=== PATIENT | female | born 1955 | race Caucasian/White ===

== ENCOUNTER 2016-12-08 10:02 | Inpatient (IN) | payer OTHER ==
[~2016-12-08] VITALS: Ht 165.1 cm; Wt 98.3 kg
[2016-12-08] MEDS ORDERED: SODIUM CHLORIDE 0.9% 1,000 ML IV ONE (11:00)
[2016-12-08] MEDS ORDERED: HYDROmorphone HCL 2 MG/ML VL IV ONE (11:00)
[2016-12-08] MEDS ORDERED: ONDANSETRON HCL 4 MG/2 ML VIAL IV ONE ×2 (11:00→12:45)
[2016-12-08] MEDS ORDERED: POTA10SO11 GT (11:15)
[2016-12-08] MEDS ORDERED: PANT40TA2 PO (11:15)
[2016-12-08] MEDS ORDERED: SIMV-13 PO (11:15)
[2016-12-08] MEDS ORDERED: LISI10TA6 PO (11:25)
[2016-12-08] MEDS ORDERED: ATEN-60 PO (11:25)
[2016-12-08 11:35] LABS: Basophils # (auto) 0.1 uL; Basophils % (auto) 0.6 % (0.0-2.0); CONDITION Y; Eosinophils # (auto) 0.1 uL; Eosinophils % (auto) 1.1 % (0.0-7.0); Lymphocytes # (auto) 1.3 uL; Lymphocytes % (auto) 14.2 % (10.0-50.0); Mean Corpuscular Hemoglobin 32.7 pg (28.0-32.0); Mean Corpuscular Hgb Conc. 34.2 g/dL (32.0-36.0); Mean Corpuscular Volume 95.8 fL (80.0-100.0); Mean Platelet Volume 8.4 fL (7.4-10.4); Monocytes # (auto) 0.6 uL; Monocytes % (auto) 6.4 % (0.0-12.0); Neutrophils % (auto) 77.7 % (37.0-80.0); Platelet Count (auto) 297 10^3/uL (140-450); Red Cell Distribution Width 12.9 % (11.6-16.0); White Blood Cell 9.1 10^3/uL (4.4-10.8)
[2016-12-08 11:51] LABS: INR 0.99 (0.9-1.15); Partial Thromboplastin Time 24.3 sec (22.64-33.71); Prothrombin Time 10.8 sec (9.37-12.3)
[2016-12-08 11:58] LABS: Albumin 3.7 g/dL (3.4-5.0); BUN/Creatinine Ratio 18.4; Calcium 8.4 mg/dL (8.5-10.1)
[2016-12-08 12:01] LABS: Bilirubin, Total 0.5 mg/dL (0.2-1.0); Total Protein 7.4 g/dL (6.4-8.2)
[2016-12-08] MEDS: SODIUM CHLORIDE 0.9% 1,000 ML IV SCH ×2 (12:11→22:02)
[2016-12-08] MEDS ORDERED: LORazepam 0.5 MG TAB PO PRN (12:15)
[2016-12-08] MEDS ORDERED: TEMAZEPAM 15 MG CAP PO PRN (12:15)
[2016-12-08] MEDS ORDERED: MORPHINE SULF INJ 2 MG/ML SYRINGE 1ML IV PRN ×2 (12:15→12:45)
[2016-12-08] MEDS ORDERED: BUPIVACAINE 0.25% INJ 50ML VIAL ONE (12:39)
[2016-12-08] MEDS ORDERED: KETOROLAC TROMETH 30 MG/ML 1ML VIAL IV ONE (12:45)
[2016-12-08] MEDS ORDERED: MIDAZOLAM HCL 1MG/1ML-2 ML VIAL IV PRN (12:45)
[2016-12-08] MEDS ORDERED: LABETALOL HCL 5 MG/ML 4ML SYRINGE IV PRN (12:45)
[2016-12-08] MEDS ORDERED: HYDROmorphone HCL 2 MG/ML VL IV PRN ×2 (12:45→15:15)
[2016-12-08] MEDS ORDERED: ePHEDrine SULFATE 50 MG/ML AMP IV PRN (12:45)
[2016-12-08] MEDS ORDERED: ceFAZolin 1GM/50ML D5W 100 ML IV ONE (12:46)
[2016-12-08] MEDS ORDERED: POTASSIUM CHL 20MEQ/100ML 100 ML IV ONE (12:52)
[2016-12-08] MEDS ORDERED: MORPHINE SULF(PF) 0.5MG/ML 10ML VIAL ONE (12:55)
[2016-12-08] MEDS ORDERED: fentaNYL CITRATE 100 MCG/2 ML VL ONE (12:55)
[2016-12-08] MEDS ORDERED: MIDAZOLAM HCL 1MG/1ML-2 ML VIAL ONE (12:55)
[2016-12-08] MEDS ORDERED: TETRACAINE 1% INJ 2 ML VIAL IJ ONE (12:57)
[2016-12-08] MEDS: PANTOPRAZOLE 40 MG TAB PO SCH (13:00)
[2016-12-08] MEDS ORDERED: DEXAMETHASONE SOD PHOS 10MG/1ML VIAL INJ IV PRN (15:15)
[2016-12-08] MEDS ORDERED: KETOROLAC TROMETH 30 MG/ML 1ML VIAL IV PRN (15:15)
[2016-12-08] MEDS ORDERED: diphenhdrAMINE HCL 50 MG/1 ML VL IV PRN (15:15)
[2016-12-08] MEDS ORDERED: NALBUPHINE HCL 10 MG/1ml INJECTION SUBCUT ONE (15:15)
[2016-12-08] MEDS ORDERED: NALOXONE HCL 0.4 MG/ML VIAL IV PRN (15:15)
[2016-12-08] MEDS ORDERED: ONDANSETRON HCL 4 MG/2 ML VIAL IV PRN (15:15)
[2016-12-08 17:01] VITALS: BP 128/67
[2016-12-08 22:00] VITALS: BP 121/71
[2016-12-08] MEDS: ceFAZolin 1GM/50ML D5W 50 ML IV SCH (23:25)
[2016-12-08] MEDS: HYDROmorphone HCL 2 MG/ML VL IV PRN (23:43)
[2016-12-09 05:00] VITALS: BP 115/47
[2016-12-09] MEDS: ceFAZolin 1GM/50ML D5W 50 ML IV SCH ×3 (05:37→22:00)
[2016-12-09] MEDS: HYDROmorphone HCL 2 MG/ML VL IV PRN ×3 (05:45→13:20)
[2016-12-09] MEDS: SODIUM CHLORIDE 0.9% 1,000 ML IV SCH ×3 (05:45→22:00)
[2016-12-09] MEDS: PANTOPRAZOLE 40 MG TAB PO SCH (08:56)
[2016-12-09 09:00] VITALS: BP 111/47
[2016-12-09] MEDS: PROMETHAZINE HCL 25 MG/ML 1ML IV PRN (12:36)
[2016-12-09 13:00] VITALS: BP 110/43
[2016-12-09] MEDS ORDERED: POTASSIUM CHL 20 Meq TABLET PO ONE (15:00)
[2016-12-09] MEDS ORDERED: cefTRIAXone 1GM/50ML D5W 50 ML IV ONE (16:45)
[2016-12-09] MEDS: ACETAMINOPHEN 500 MG TAB PO PRN (16:50)
[2016-12-09 17:00] VITALS: BP 130/50
[2016-12-09 18:29] LABS: Urine Bilirubin Negative (Negative); Urine Blood Negative /uL (Negative); Urine Color Yellow (Yellow); Urine Glucose Normal (Normal); Urine Ketone Negative (Negative); Urine Nitrite Negative (Negative); Urine RBC 1 /hpf (0 - 4); Urine Squamous Epithelial Cell FEW /hpf (<5); Urine Urobilinogen Normal (Negative)
[2016-12-09 21:49] VITALS: BP 107/53
[2016-12-10] MEDS: ceFAZolin 1GM/50ML D5W 50 ML IV SCH ×3 (00:37→12:19)
[2016-12-10] MEDS: ACETAMINOPHEN 500 MG TAB PO PRN ×2 (04:56→17:15)
[2016-12-10 05:31] LABS: Basophils # (auto) 0 uL; Basophils % (auto) 0.3 % (0.0-2.0); CONDITION Y; Eosinophils # (auto) 0 uL; Hematocrit 33.6 % (36.0-46.0); Hemoglobin 11.4 g/dL (12.2-16.2); Lymphocytes # (auto) 0.5 uL; Lymphocytes % (auto) 8.6 % (10.0-50.0); Mean Corpuscular Hemoglobin 32.4 pg (28.0-32.0); Mean Corpuscular Volume 95.5 fL (80.0-100.0); Mean Platelet Volume 8.8 fL (7.4-10.4); Monocytes # (auto) 0.7 uL; Monocytes % (auto) 10.9 % (0.0-12.0); Neutrophils % (auto) 80.2 % (37.0-80.0); Platelet Count (auto) 205 10^3/uL (140-450); Red Cell Distribution Width 13.2 % (11.6-16.0); White Blood Cell 6.3 10^3/uL (4.4-10.8)
[2016-12-10] MEDS: PROMETHAZINE HCL 25 MG/ML 1ML IV PRN ×2 (05:33→11:01)
[2016-12-10] MEDS: HYDROmorphone HCL 2 MG/ML VL IV PRN ×2 (05:33→11:01)
[2016-12-10 06:08] VITALS: BP 121/58
[2016-12-10 09:00] VITALS: BP 105/56
[2016-12-10] MEDS: cefTRIAXone 1GM/50ML D5W 50 ML IV SCH (11:00)
[2016-12-10] MEDS: PANTOPRAZOLE 40 MG TAB PO SCH (11:00)
[2016-12-10 13:00] VITALS: BP 119/61
[2016-12-10] MEDS: SODIUM CHLORIDE 0.9% 1,000 ML IV SCH (14:11)
[2016-12-10 17:20] VITALS: BP 129/55
[2016-12-10 21:01] VITALS: BP 112/57
[2016-12-11] MEDS: SODIUM CHLORIDE 0.9% 1,000 ML IV SCH ×3 (00:11→22:21)
[2016-12-11] MEDS: ACETAMINOPHEN 500 MG TAB PO PRN ×3 (03:05→19:53)
[2016-12-11 05:00] VITALS: BP 123/59
[2016-12-11 09:07] VITALS: BP 119/63
[2016-12-11] MEDS: PANTOPRAZOLE 40 MG TAB PO SCH (09:58)
[2016-12-11] MEDS: cefTRIAXone 1GM/50ML D5W 50 ML IV SCH (09:58)
[2016-12-11] MEDS: PROMETHAZINE HCL 25 MG/ML 1ML IV PRN (12:21)
[2016-12-11 13:00] VITALS: BP 129/57
[2016-12-11 17:00] VITALS: BP 131/70
[2016-12-11 17:06] LABS: Urine Bilirubin Negative (Negative); Urine Blood Negative /uL (Negative); Urine Color Yellow (Yellow); Urine Glucose Normal (Normal); Urine Ketone Negative (Negative); Urine Nitrite Negative (Negative); Urine RBC <1 /hpf (0 - 4); Urine Squamous Epithelial Cell FEW /hpf (<5); Urine Urobilinogen Normal (Negative); Urine pH 7.5 (5.0-8.0)
[2016-12-11 22:00] VITALS: BP 122/56
[2016-12-12 05:00] VITALS: BP 129/74
[2016-12-12] MEDS: SODIUM CHLORIDE 0.9% 1,000 ML IV SCH ×2 (05:40→19:45)
[2016-12-12 06:08] LABS: Basophils # (auto) 0 uL; Basophils % (auto) 0.5 % (0.0-2.0); CONDITION Y; Eosinophils # (auto) 0.1 uL; Eosinophils % (auto) 2.5 % (0.0-7.0); Hematocrit 32.9 % (36.0-46.0); Hemoglobin 11.2 g/dL (12.2-16.2); Lymphocytes # (auto) 0.9 uL; Lymphocytes % (auto) 16.7 % (10.0-50.0); Mean Corpuscular Hemoglobin 32.4 pg (28.0-32.0); Mean Corpuscular Volume 95.2 fL (80.0-100.0); Mean Platelet Volume 8.9 fL (7.4-10.4); Monocytes # (auto) 0.5 uL; Monocytes % (auto) 9.8 % (0.0-12.0); Neutrophils # (auto) 3.7 uL; Neutrophils % (auto) 70.5 % (37.0-80.0); Platelet Count (auto) 196 10^3/uL (140-450); Red Cell Distribution Width 13.5 % (11.6-16.0); White Blood Cell 5.3 10^3/uL (4.4-10.8)
[2016-12-12 06:19] LABS: BUN/Creatinine Ratio 13.1; Calcium 7.7 mg/dL (8.5-10.1); Magnesium 2.2 mg/dL (1.6-2.6)
[2016-12-12 06:31] LABS: Potassium 2.7 mmol/L (3.5-5.1)
[2016-12-12] MEDS ORDERED: POTASSIUM CHL 20 Meq TABLET PO ONE (06:45)
[2016-12-12] MEDS: HYDROcodone-ACET 7.5/325MG TAB PO PRN ×2 (07:08→17:40)
[2016-12-12 09:20] VITALS: BP 133/74
[2016-12-12] MEDS: cefTRIAXone 1GM/50ML D5W 50 ML IV SCH (09:42)
[2016-12-12] MEDS: PANTOPRAZOLE 40 MG TAB PO SCH (09:42)
[2016-12-12 13:00] VITALS: BP 123/71
[2016-12-12 18:12] VITALS: BP 150/75
[2016-12-12 20:00] VITALS: BP 111/65
[2016-12-12 22:00] VITALS: BP 111/65
[2016-12-13] MEDS: HYDROcodone-ACET 7.5/325MG TAB PO PRN ×2 (00:35→12:01)
[2016-12-13] MEDS: SODIUM CHLORIDE 0.9% 1,000 ML IV SCH ×2 (02:11→14:07)
[2016-12-13 05:00] VITALS: BP 129/71
[2016-12-13 06:22] LABS: Basophils # (auto) 0 uL; Basophils % (auto) 0.8 % (0.0-2.0); CONDITION Y; Eosinophils # (auto) 0.2 uL; Hematocrit 33.9 % (36.0-46.0); Hemoglobin 11.6 g/dL (12.2-16.2); Lymphocytes # (auto) 1.3 uL; Lymphocytes % (auto) 23.9 % (10.0-50.0); Mean Corpuscular Hemoglobin 32.5 pg (28.0-32.0); Mean Corpuscular Hgb Conc. 34.1 g/dL (32.0-36.0); Mean Corpuscular Volume 95.4 fL (80.0-100.0); Mean Platelet Volume 8.3 fL (7.4-10.4); Monocytes # (auto) 0.5 uL; Monocytes % (auto) 9.5 % (0.0-12.0); Neutrophils # (auto) 3.4 uL; Neutrophils % (auto) 61.8 % (37.0-80.0); Platelet Count (auto) 244 10^3/uL (140-450); Red Cell Distribution Width 13.3 % (11.6-16.0); White Blood Cell 5.5 10^3/uL (4.4-10.8)
[2016-12-13 06:25] LABS: Calcium 7.9 mg/dL (8.5-10.1)
[2016-12-13 06:31] LABS: Potassium 2.9 mmol/L (3.5-5.1)
[2016-12-13] MEDS ORDERED: POTASSIUM CHL 20 Meq TABLET PO ONE ×3 (06:45→16:00)
[2016-12-13 08:30] VITALS: BP 148/74
[2016-12-13] MEDS: PANTOPRAZOLE 40 MG TAB PO SCH (10:46)
[2016-12-13 12:30] VITALS: BP 138/64
[2016-12-13] MEDS ORDERED: HYDR-4663 PO (15:48)
[2016-12-13 16:38] VITALS: BP 124/68
[2016-12-13 17:53] VITALS: BP 124/68
[2016-12-13 18:14] VITALS: BP 124/68
== END 2016-12-13 20:30 | disposition home or self-care (01) | DRG 493 ==
LOC: ER 10:02 → EDBD 10:02 → OVERFLOW 10:03 → WEST WING 16:37
PROVIDERS: ADMIT Internal Medicine; ATTEND Internal Medicine
PROC: 0QSK04Z Reposition Left Fibula with Internal Fixation Device, Open Approach (ICD-10-PCS; 2016-12-08)
PROC: 0QSH04Z Reposition Left Tibia with Internal Fixation Device, Open Approach (ICD-10-PCS; principal; 2016-12-08 13:04)
DX: S82.842A Displaced bimalleolar fracture of left lower leg, initial encounter for closed fracture (principal); N39.0 Urinary tract infection, site not specified; S82.252A Displaced comminuted fracture of shaft of left tibia, initial encounter for closed fracture; S82.872A Displaced pilon fracture of left tibia, initial encounter for closed fracture; S82.452A Displaced comminuted fracture of shaft of left fibula, initial encounter for closed fracture; E66.9 Obesity, unspecified; I10 Essential (primary) hypertension; M21.969 Unspecified acquired deformity of unspecified lower leg; W18.39XA Other fall on same level, initial encounter; E78.5 Hyperlipidemia, unspecified; E87.6 Hypokalemia; M77.30 Calcaneal spur, unspecified foot; Z81.8 Family history of other mental and behavioral disorders; Z82.49 Family history of ischemic heart disease and other diseases of the circulatory system; Y93.89 Activity, other specified; Y92.098 Other place in other non-institutional residence as the place of occurrence of the external cause; Y99.8 Other external cause status; Z68.36 Body mass index [BMI] 36.0-36.9, adult; M89.9 Disorder of bone, unspecified; R50.9 Fever, unspecified; S93.422A Sprain of deltoid ligament of left ankle, initial encounter
CPT/HCPCS: 36415; 71010; 71020; 73600; 73610; 76000; 78306; 80048; 80053; 80061; 81001; 83605; 83735; 84132; 85025; 85610; 85730; 87040; 87086; 93005; 96361; 96374; 96375; J0690; J0696; J2250; J2405; J3480; J3490

== ENCOUNTER 2021-05-29 11:33 | Inpatient (IN) | payer OTHER ==
[~2021-05-29] VITALS: Ht 165.1 cm; Wt 95.3 kg
[~2021-05-29 11:33] MED LIST: ATEN-60 PO; LISI-716 PO; PANT40TA2 PO; POTA10SO11 GT; SIMV-13 PO
[2021-05-29 12:12] VITALS: BP 129/63
[2021-05-29] MEDS ORDERED: ONDANSETRON HCL 4 MG/2 ML VIAL IV ONE (13:15)
[2021-05-29] MEDS ORDERED: SODIUM CHLORIDE 0.9% 500 ML IV ONE (13:15)
[2021-05-29] MEDS ORDERED: MORPHINE SULFATE INJECTION 2 MG/ML SYRG IV ONE (13:15)
[2021-05-29 13:24] LABS: Basophils # (auto) 0 10 ^3/uL (0-0.2); Basophils % (auto) 0.1 % (0.0-2.0); Eosinophils # (auto) 0.2 10 ^3/uL (0-0.8); Eosinophils % (auto) 3.5 % (0.0-7.0); Hematocrit 39.3 % (36.0-46.0); Hemoglobin 13.5 g/dL (12.2-16.2); Lymphocytes # (auto) 0.3 10 ^3/uL (0.4-5.4); Lymphocytes % (auto) 4.9 % (10.0-50.0); Mean Corpuscular Hemoglobin 32.9 pg (28.0-32.0); Mean Corpuscular Hgb Conc. 34.2 g/dL (32.0-36.0); Mean Corpuscular Volume 96.3 fL (80.0-100.0); Monocytes # (auto) 0.4 10 ^3/uL (0-1.3); Monocytes % (auto) 5.7 % (0.0-12.0); Neutrophils # (auto) 5.7 10 ^3/uL (1.6-8.6); Neutrophils % (auto) 85.8 % (37.0-80.0); Red Blood Cells 4.08 10^6/uL (4.0-5.20); Red Cell Distribution Width 12.9 % (11.8-14.3); White Blood Cell 6.6 10^3/uL (4.4-10.8)
[2021-05-29 13:41] LABS: Albumin 3.6 g/dL (3.4-5.0); BUN/Creatinine Ratio 15.7; Calcium 7.9 mg/dL (8.5-10.1); Potassium 3.5 mmol/L (3.5-5.1)
[2021-05-29 13:44] LABS: Bilirubin, Total 0.3 mg/dL (0.2-1.0); Total Protein 7.2 g/dL (6.4-8.2)
[2021-05-29] MEDS ORDERED: CLINDAMYCIN 600MG IV 50 ML IV ONE (15:00)
[2021-05-29] MEDS ORDERED: ALUM & MAG HYDROX-SIMETH LIQ(MAALOX) 30 ML PO PRN (19:30)
[2021-05-29] MEDS ORDERED: HYDROcodone-ACET 5/325MG TAB PO PRN (19:30)
[2021-05-29] MEDS ORDERED: MORPHINE SULFATE INJECTION 2 MG/ML SYRG IV PRN ×2 (19:30)
[2021-05-29] MEDS ORDERED: SODIUM CHLORIDE 0.9% 1,000 ML IV SCH (19:30)
[2021-05-29] MEDS ORDERED: NITROGLYCERIN 0.4 MG SL TAB SL PRN (19:30)
[2021-05-29] MEDS ORDERED: DEXTROSE (50%) 50ML SYRG IV PRN (19:30)
[2021-05-29] MEDS ORDERED: ONDANSETRON HCL 4 MG/2 ML VIAL IV PRN (19:30)
[2021-05-29] MEDS ORDERED: PIPERACILLIN-TAZOB 3.375GM 100 ML IV SCH (20:00)
[2021-05-29] MEDS ORDERED: InsuLIN REG 1unit/0.01ml Soln (100units/ml) SC SCH (22:00)
[2021-05-29] MEDS ORDERED: ACCU-CHEK COMFORT CURVE STRIP VI SCH (22:00)
[2021-05-29] MEDS ORDERED: ENOXAPARIN SOD 40 MG/0.4 ML SYRINGE SC SCH (22:00)
[2021-05-30] MEDS ORDERED: InsuLIN REG 1unit/0.01ml Soln (100units/ml) SC SCH (07:00)
== END 2021-05-29 20:40 | disposition left against medical advice (07) | DRG 683 ==
LOC: ER 11:33 → OVERFLOW 19:18
PROVIDERS: ADMIT Internal Medicine; ATTEND Internal Medicine
DX: N17.9 Acute kidney failure, unspecified (principal); L02.413 Cutaneous abscess of right upper limb; E87.1 Hypo-osmolality and hyponatremia; L03.113 Cellulitis of right upper limb; I10 Essential (primary) hypertension; K21.9 Gastro-esophageal reflux disease without esophagitis; Z79.899 Other long term (current) drug therapy; Z81.8 Family history of other mental and behavioral disorders; Z82.3 Family history of stroke; Z82.49 Family history of ischemic heart disease and other diseases of the circulatory system; Z83.3 Family history of diabetes mellitus; Z83.6 Family history of other diseases of the respiratory system
CPT/HCPCS: 36415; 73200; 80053; 83605; 85025; 87040; G0378